=== PATIENT | male | born 1955 | race Caucasian/White ===

== ENCOUNTER 2017-10-05 10:57 | Observation (INO) | payer MEDICARE, OTHER ==
[~2017-10-05] VITALS: Ht 190.5 cm; Wt 104.5 kg
[2017-10-05 11:04] VITALS: BP 166/96; PULSE 81; RESP 16; TEMP 97.6; O2SAT 100
--- NOTE | 2017-10-05 11:08 | PD ---
HPI Chief Complaint: Cardiac Complaint Time Seen by Provider: 11:07 Travel History International Travel<30 days: No Contact w/Intl Traveler<30days: No Traveled to known affect area: No History of Present Illness HPI 62-year-old male with history of CAD, stent placement in April 2017, presents to the emergency department for evaluation of chest pressure. Patient states that over the last 3-4 days he has had worsening of indigestion any chest pressure more substernal in nature. This morning when he was walking his dog the pain became more severe in his left arm became numb and tingling. Over the last few days he has had associated shortness of breath with the symptoms. He contacted Dr. Thibodeaux's office and was advised to come to the emergency department. Patient took 1 aspirin this morning as he usually does. He is on both aspirin and Plavix. He denies any recent illnesses, fever, or chills. No sensation of lightheadedness or diaphoresis. He has no other symptoms to report at this time. PFSH Past Medical History Cardiovascular Problems: Yes Social History Tobacco Use: No Allergies-Medications (Allergen,Severity, Reaction): Coded Allergies: No Known Allergies (Unverified , 10/05/17) Reported Meds & Prescriptions Reported Meds & Active Scripts Active Reported Crestor (Rosuvastatin Calcium) 10 Mg Tab 10 Mg PO DAILY Plavix (Clopidogrel Bisulfate) 75 Mg Tab 75 Mg PO HS Levothyroxine (Levothyroxine Sodium) 50 Mcg Tab 50 Mcg PO DAILY Guaifenesin 400 Mg Tab 400 Mg PO Q4-6H PRN Tramadol (Tramadol HCl) 50 Mg Tab 50 Mg PO Q6H PRN Gabapentin 100 Mg Cap 100 Mg PO DAILY PRN Aspirin 325 Mg Tab 325 Mg PO HS Ambien (Zolpidem Tartrate) 10 Mg Tab 10 Mg PO HS PRN Protonix (Pantoprazole Sodium) 40 Mg Tab 40 Mg PO DAILY Nemo Allergy (Fexofenadine HCl) Unknown Strength Tab 1 Tab PO DAILY Flomax (Tamsulosin HCl) 0.4 Mg Cap 0.4 Mg PO HS Ibuprofen 800 Mg Tab 800 Mg PO TID PRN Flunisolide Nasal [place] (Flunisolide) 0.025 Mg/Act Naspr 2 [place] EACH NARE DAILY Review of Systems Except as stated in HPI: all other systems reviewed are Neg Physical Exam Narrative GENERAL: Well-nourished male patient, ambulatory and in no acute distress. SKIN: Focused skin assessment warm/dry. HEAD: Atraumatic. Normocephalic. EYES: Pupils equal and round. No scleral icterus. No injection or drainage. ENT: No nasal bleeding or discharge. Mucous membranes pink and moist. NECK: Trachea midline. No JVD. CARDIOVASCULAR: Regular rate and rhythm. No murmur appreciated. RESPIRATORY: No accessory muscle use. Clear to auscultation. Breath sounds equal bilaterally. GASTROINTESTINAL: Abdomen soft, non-tender, nondistended. Hepatic and splenic margins not palpable. MUSCULOSKELETAL: No obvious deformities. No clubbing. No cyanosis. No edema. NEUROLOGICAL: Awake and alert. No obvious cranial nerve deficits. Motor grossly within normal limits. Normal speech. PSYCHIATRIC: Appropriate mood and affect; insight and judgment normal. Data Data Last Documented VS Vital Signs Date Time Temp Pulse Resp B/P (MAP) Pulse Ox O2 Delivery O2 Flow Rate FiO2 10/05/17 12:09 122/80 (94) 10/05/17 11:25 18 99 Room Air 10/05/17 11:20 81 10/05/17 11:04 97.6 Orders Orders Electrocardiogram (10/05/17 11:14) Basic Metabolic Panel (Bmp) (10/05/17 11:14) Ckmb (Isoenzyme) Profile (10/05/17 11:14) Complete Blood Count With Diff (10/05/17 11:14) Magnesium (Mg) (10/05/17 11:14) Prothrombin Time / Inr (Pt) (10/05/17 11:14) Act Partial Throm Time (Ptt) (10/05/17 11:14) Troponin I (10/05/17 11:14) Ecg Monitoring (10/05/17 11:14) Bilateral Bp Monitoring (10/05/17 11:14) Iv Access Insert/Monitor (10/05/17 11:14) Oximetry (10/05/17 11:14) Oxygen Administration (10/05/17 11:14) Aspirin Chew (Aspirin Chew) (10/05/17 11:15) Sodium Chloride 0.9% Flush (Ns Flush) (10/05/17 11:15) Nitroglycerin Sl (Nitrostat Sl) (10/05/17 11:15) Sodium Chlorid 0.9% 500 Ml Inj (Ns 500 M (10/05/17 11:15) Chest, Pa & Lat (10/05/17 11:14) CKMB (10/05/17 11:35) CKMB% (10/05/17 11:35) Admit Order (Ed Use Only) (10/05/17 13:08) Labs Laboratory Tests Test 10/05/17 11:35 White Blood Count 4.9 TH/MM3 Red Blood Count 4.74 MIL/MM3 Hemoglobin 15.3 GM/DL Hematocrit 42.9 % Mean Corpuscular Volume 90.5 FL Mean Corpuscular Hemoglobin 32.2 PG Mean Corpuscular Hemoglobin Concent 35.5 % Red Cell Distribution Width 13.3 % Platelet Count 192 TH/MM3 Mean Platelet Volume 7.5 FL Neutrophils (%) (Auto) 43.0 % Lymphocytes (%) (Auto) 35.9 % Monocytes (%) (Auto) 15.9 % Eosinophils (%) (Auto) 4.1 % Basophils (%) (Auto) 1.1 % Neutrophils # (Auto) 2.1 TH/MM3 Lymphocytes # (Auto) 1.8 TH/MM3 Monocytes # (Auto) 0.8 TH/MM3 Eosinophils # (Auto) 0.2 TH/MM3 Basophils # (Auto) 0.1 TH/MM3 CBC Comment DIFF FINAL Differential Comment Prothrombin Time 11.1 SEC Prothromb Time International Ratio 1.1 RATIO Activated Partial Thromboplast Time 26.5 SEC Blood Urea Nitrogen 18 MG/DL Creatinine 1.29 MG/DL Random Glucose 91 MG/DL Calcium Level 9.1 MG/DL Magnesium Level 2.2 MG/DL Sodium Level 143 MEQ/L Potassium Level 4.1 MEQ/L Chloride Level 111 MEQ/L Carbon Dioxide Level 25.3 MEQ/L Anion Gap 7 MEQ/L Estimat Glomerular Filtration Rate 56 ML/MIN Total Creatine Kinase 135 U/L Creatine Kinase MB 1.2 NG/ML Troponin I LESS THAN 0.02 NG/ML MDM Medical Decision Making Medical Screen Exam Complete: Yes Emergency Medical Condition: Yes Medical Record Reviewed: Yes Differential Diagnosis Unstable angina versus NSTEMI versus STEMI versus pleuritic pain versus chest wall pain Narrative Course 62-year-old male presents to the emergency department for evaluation of a chest pressure/ pain with associated shortness of breath and left upper extremity tingling. Patient appears well. He is in no acute distress. His vital signs are stable. EKG was reviewed by my attending physician with no ST elevation or depression. Patient was given nitroglycerin. He reports marked improvement in his symptoms with this. Cardiac workup is initiated. Laboratory Tests Test 10/05/17 11:35 White Blood Count 4.9 TH/MM3 Red Blood Count 4.74 MIL/MM3 Hemoglobin 15.3 GM/DL Hematocrit 42.9 % Mean Corpuscular Volume 90.5 FL Mean Corpuscular Hemoglobin 32.2 PG Mean Corpuscular Hemoglobin Concent 35.5 % Red Cell Distribution Width 13.3 % Platelet Count 192 TH/MM3 Mean Platelet Volume 7.5 FL Neutrophils (%) (Auto) 43.0 % Lymphocytes (%) (Auto) 35.9 % Monocytes (%) (Auto) 15.9 % Eosinophils (%) (Auto) 4.1 % Basophils (%) (Auto) 1.1 % Neutrophils # (Auto) 2.1 TH/MM3 Lymphocytes # (Auto) 1.8 TH/MM3 Monocytes # (Auto) 0.8 TH/MM3 Eosinophils # (Auto) 0.2 TH/MM3 Basophils # (Auto) 0.1 TH/MM3 CBC Comment DIFF FINAL Differential Comment Prothrombin Time 11.1 SEC Prothromb Time International Ratio 1.1 RATIO Activated Partial Thromboplast Time 26.5 SEC Blood Urea Nitrogen 18 MG/DL Creatinine 1.29 MG/DL Random Glucose 91 MG/DL Calcium Level 9.1 MG/DL Magnesium Level 2.2 MG/DL Sodium Level 143 MEQ/L Potassium Level 4.1 MEQ/L Chloride Level 111 MEQ/L Carbon Dioxide Level 25.3 MEQ/L Anion Gap 7 MEQ/L Estimat Glomerular Filtration Rate 56 ML/MIN Total Creatine Kinase 135 U/L Creatine Kinase MB 1.2 NG/ML Troponin I LESS THAN 0.02 NG/ML Last Impressions Chest X-Ray 10/05/17 1114 Signed Impressions: Service Date/Time: September 11:39 - CONCLUSION: Normal examination for a patient of this age. Gregory Casper MD I discussed the patient with Dr. Thibodeaux who requests chest pain center observation with nothing by mouth after midnight. Plan is discussed with the patient. I've also discussed with my attending who is also assessed him and agrees with this plan of care. Diagnosis Primary Impression: Chest pain Qualified Codes: R07.9 - Chest pain, unspecified Admitting Information Admitting Physician Requests: Observation Condition: Stable Lorena Levine Oct 05, 2017 11:08
[2017-10-05] MEDS ORDERED: ASPIRIN 81 MG CHEW TAB PO ONE (11:15)
[2017-10-05] MEDS ORDERED: SODIUM CHLORID 0.9% 500 ML INJ 500 ML IV ONE (11:15)
[2017-10-05] MEDS ORDERED: SODIUM CHLORIDE 0.9% FLUSH 10 ML FLUSH IVF PRN (11:15)
[2017-10-05 11:20] VITALS: BP 162/103; PULSE 81; RESP 18; O2SAT 99
[2017-10-05] MEDS: NITROGLYCERIN 0.4 MG SL 25 TABS/BTL SL SCH ×4 (11:20→13:09)
[2017-10-05 11:25] VITALS: RESP 18; O2SAT 99
--- NOTE | 2017-10-05 11:43 | PD ---
Physical Exam Narrative I, Dr. Mulligan, have reviewed the advance practice practitioner's documentation and am in agreement, met with the patient face to face, made the diagnosis, and the medical decision making was done by me. *My assessment and Findings: Patient is a 62 year old male who comes in complaining of chest pain. He says for the past few days he was having what he thought was indigestion. He says he has had discomfort in his chest on and of, worse when he exerts himself. He says he was walking his dog today when he felt pressure in his chest radiating down his left arm. 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 He had a stent placed in April and says this feels different then that time, when he felt more of a severe pressure sensation to his chest. Exam shows lungs CTA, heart is RRR. Data Data Last Documented VS Vital Signs Date Time Temp Pulse Resp B/P (MAP) Pulse Ox O2 Delivery O2 Flow Rate FiO2 10/05/17 12:09 122/80 (94) 10/05/17 11:25 18 99 Room Air 10/05/17 11:20 81 10/05/17 11:04 97.6 Orders Orders Electrocardiogram (10/05/17 11:14) Basic Metabolic Panel (Bmp) (10/05/17 11:14) Ckmb (Isoenzyme) Profile (10/05/17 11:14) Complete Blood Count With Diff (10/05/17 11:14) Magnesium (Mg) (10/05/17 11:14) Prothrombin Time / Inr (Pt) (10/05/17 11:14) Act Partial Throm Time (Ptt) (10/05/17 11:14) Troponin I (10/05/17 11:14) Ecg Monitoring (10/05/17 11:14) Bilateral Bp Monitoring (10/05/17 11:14) Iv Access Insert/Monitor (10/05/17 11:14) Oximetry (10/05/17 11:14) Oxygen Administration (10/05/17 11:14) Aspirin Chew (Aspirin Chew) (10/05/17 11:15) Sodium Chloride 0.9% Flush (Ns Flush) (10/05/17 11:15) Nitroglycerin Sl (Nitrostat Sl) (10/05/17 11:15) Sodium Chlorid 0.9% 500 Ml Inj (Ns 500 M (10/05/17 11:15) Chest, Pa & Lat (10/05/17 11:14) CKMB (10/05/17 11:35) CKMB% (10/05/17 11:35) Admit Order (Ed Use Only) (10/05/17 13:08) Labs Laboratory Tests Test 10/05/17 11:35 White Blood Count 4.9 TH/MM3 Red Blood Count 4.74 MIL/MM3 Hemoglobin 15.3 GM/DL Hematocrit 42.9 % Mean Corpuscular Volume 90.5 FL Mean Corpuscular Hemoglobin 32.2 PG Mean Corpuscular Hemoglobin Concent 35.5 % Red Cell Distribution Width 13.3 % Platelet Count 192 TH/MM3 Mean Platelet Volume 7.5 FL Neutrophils (%) (Auto) 43.0 % Lymphocytes (%) (Auto) 35.9 % Monocytes (%) (Auto) 15.9 % Eosinophils (%) (Auto) 4.1 % Basophils (%) (Auto) 1.1 % Neutrophils # (Auto) 2.1 TH/MM3 Lymphocytes # (Auto) 1.8 TH/MM3 Monocytes # (Auto) 0.8 TH/MM3 Eosinophils # (Auto) 0.2 TH/MM3 Basophils # (Auto) 0.1 TH/MM3 CBC Comment DIFF FINAL Differential Comment Prothrombin Time 11.1 SEC Prothromb Time International Ratio 1.1 RATIO Activated Partial Thromboplast Time 26.5 SEC Blood Urea Nitrogen 18 MG/DL Creatinine 1.29 MG/DL Random Glucose 91 MG/DL Calcium Level 9.1 MG/DL Magnesium Level 2.2 MG/DL Sodium Level 143 MEQ/L Potassium Level 4.1 MEQ/L Chloride Level 111 MEQ/L Carbon Dioxide Level 25.3 MEQ/L Anion Gap 7 MEQ/L Estimat Glomerular Filtration Rate 56 ML/MIN Total Creatine Kinase 135 U/L Creatine Kinase MB 1.2 NG/ML Troponin I LESS THAN 0.02 NG/ML MDM Supervised Visit with VICKIE: Yes Narrative Course First Troponin is negative. Patient reports relief of his symptoms with nitro. He will be placed in the chest pain center for further management. Diagnosis Primary Impression: Chest pain Qualified Codes: R07.9 - Chest pain, unspecified Admitting Information Admitting Physician Requests: Heather Sauceda MD Oct 05, 2017 11:42
--- NOTE | 2017-10-05 11:50 | RADRPT ---
EXAM DATE/TIME: 10/05/2017 11:39 [facility] COMPARISON: No previous studies available for comparison. INDICATIONS : Chest pain MEDICAL HISTORY : Cardiovascular disease. SURGICAL HISTORY : Coronary artery stent. ENCOUNTER: Initial ACUITY: 4 - 6 days PAIN SCORE: 2/10 LOCATION: chest FINDINGS: PA and lateral views of the chest demonstrate the lungs to be symmetrically aerated without evidence of mass, infiltrate or effusion. The cardiomediastinal contours are unremarkable. Osseous structure s are intact. CONCLUSION: Normal examination for a patient of this age. Gregory Casper MD on October 05, 2017 at 11:49 Board Certified Radiologist. This report was verified electronically.
[2017-10-05 12:09] VITALS: BP 122/80
[2017-10-05 12:14] LABS: AUTOMATED NEUTROPHIL # 2.1 TH/MM3 (1.8-7.7); BASOPHIL # 0.1 TH/MM3 (0-0.2); BASOPHIL % 1.1 % (0.0-2.0); EOSINOPHIL # 0.2 TH/MM3 (0-0.4); EOSINOPHIL % 4.1 % (0.0-4.0); HEMATOCRIT 42.9 % (39.0-51.0); HEMOGLOBIN 15.3 GM/DL (13.0-17.0); LYMPH % 35.9 % (9.0-44.0); LYMPHOCYTE # 1.8 TH/MM3 (1.0-4.8); MEAN CELL VOLUME 90.5 FL (80.0-100.0); MEAN CORPUSCULAR HEMOGLOBIN 32.2 PG (27.0-34.0); MEAN CORPUSCULAR HGB CONC 35.5 % (32.0-36.0); MEAN PLATELET VOLUME 7.5 FL (7.0-11.0); MONO % 15.9 % (0.0-8.0); MONOCYTE # 0.8 TH/MM3 (0-0.9); PLATELET COUNT 192 TH/MM3 (150-450); RED BLOOD COUNT 4.74 MIL/MM3 (4.50-5.90); RED CELL DISTRIBUTION WIDTH 13.3 % (11.6-17.2); WHITE BLOOD COUNT 4.9 TH/MM3 (4.0-11.0)
[2017-10-05] MEDS ORDERED: FLUN25I EACH NARE (12:32)
[2017-10-05] MEDS ORDERED: PROT40TA PO (12:32)
[2017-10-05] MEDS ORDERED: ASPI-183 PO (12:32)
[2017-10-05] MEDS ORDERED: AMBI10TA PO (12:32)
[2017-10-05] MEDS ORDERED: IBUP1TAB7 PO (12:32)
[2017-10-05] MEDS ORDERED: TAMS5CAP PO (12:32)
[2017-10-05] MEDS ORDERED: FEXO15TA PO (12:32)
[2017-10-05 12:35] LABS: TROPONIN I LESS THAN 0.02 NG/ML (0.02-0.05)
[2017-10-05] MEDS ORDERED: GUAI400T32 PO (12:42)
[2017-10-05] MEDS ORDERED: PLAV75TA29 PO (12:42)
[2017-10-05] MEDS ORDERED: LEVO50TA4 PO (12:42)
[2017-10-05] MEDS ORDERED: GABA100C4 PO (12:42)
[2017-10-05] MEDS ORDERED: ROSU10 PO (12:42)
[2017-10-05] MEDS ORDERED: TRAM50TA PO (12:42)
[2017-10-05 12:45] LABS: INTERNATIONAL NORMALIZED RATIO 1.1 RATIO; PROTHROMBIN TIME - PATIENT 11.1 SEC (9.8-11.6)
[2017-10-05 12:47] LABS: BICARBONATE 25.3 MEQ/L (21.0-32.0); BLOOD UREA NITROGEN 18 MG/DL (7-18); CALCIUM 9.1 MG/DL (8.5-10.1); CHLORIDE 111 MEQ/L (98-107); CREATININE 1.29 MG/DL (0.60-1.30); GLOMERULAR FILTRATION RATE 56 ML/MIN (>89); GLUCOSE,RANDOM 91 MG/DL (74-106); MAGNESIUM 2.2 MG/DL (1.5-2.5); SODIUM (NA) 143 MEQ/L (136-145)
[2017-10-05 13:10] VITALS: BP_SYST 127; BP_SYST 147; BP_DIAS 84; BP_DIAS 87; PULSE 60; RESP 16; TEMP 98; O2SAT 100
[2017-10-05] MEDS ORDERED: NITROGLYCERIN 0.4 MG SL 25 TABS/BTL SL PRN (13:15)
[2017-10-05] MEDS ORDERED: ACETAMINOPHEN 500 MG CPLT PO PRN (13:15)
[2017-10-05] MEDS ORDERED: ONDANSETRON HCL 4 MG/2 ML VIAL IV PUSH PRN (13:15)
--- NOTE | 2017-10-05 14:22 | HHI.HP ---
HPI Primary Care Physician Marvin Madrid MD Chief Complaint Chest pain History of Present Illness 62-year-old male with known coronary artery disease, hypertension, and GERD presents to emergency room for further evaluation of chest pain. Onset 3 days ago. Location substernal. Described as tightness, feels like indigestion. Severity [id number]. Occasional radiation to left wrist. Left arm. Duration has waxed and waned in intensity, stating he has had the discomfort more than not having chest pain. No associated symptoms of nausea, vomiting, diaphoresis, or dyspnea. No known precipitating factors. In fact, yesterday cycled, basketball, works out at the gym, and to his routine daily walk without chest pain becoming worse. Relieving factors laying flat or being still. No recent illness, no recent trauma or injury. Denies pain. Similar prior to requiring cardiac stent placed in April 2017. Review of Systems General: No fatigue,weakness, fever, chills, or recent illness change in appetite. Has been adjusted help. HEENT: No MCKNIGHT, no vision changes, no nasal congestion or drainage, no dysphasia CV: As stated above. Continues to have chest tightness. No palpitations, intermittent leg pain, dizziness RESP: No SOB, cough, wheeze, or recent URI. GI: History of GERD and Shaw's esophagus. No nausea, vomiting, bowel changes , diarrhea, constipation, pain, distention, melena, blood in the stool. : No dysuria, urgency, frequency EXT: No lower leg edema, no paraesthesias MS: No discomfort or change in ROM NEURO: No difficulty with balance, LOC, motor/sensory deficits PSYCH: No anxiety, depression SKIN: No rashes, no concerning lesions Past Family Social History Allergies: Coded Allergies: No Known Allergies (Unverified , 10/05/17) Past Medical History Coronary artery disease, GERD, Shaw's esophagus, BPH, hyperlipidemia Past Surgical History Cardiac stent April 2017, orthopedic surgeries Reported Medications Reported Meds & Active Scripts Active Reported Crestor (Rosuvastatin Calcium) 10 Mg Tab 10 Mg PO DAILY Plavix (Clopidogrel Bisulfate) 75 Mg Tab 75 Mg PO HS Levothyroxine (Levothyroxine Sodium) 50 Mcg Tab 50 Mcg PO DAILY Guaifenesin 400 Mg Tab 400 Mg PO Q4-6H PRN Tramadol (Tramadol HCl) 50 Mg Tab 50 Mg PO Q6H PRN Gabapentin 100 Mg Cap 100 Mg PO DAILY PRN Aspirin 325 Mg Tab 325 Mg PO HS Ambien (Zolpidem Tartrate) 10 Mg Tab 10 Mg PO HS PRN Protonix (Pantoprazole Sodium) 40 Mg Tab 40 Mg PO DAILY Nemo Allergy (Fexofenadine HCl) Unknown Strength Tab 1 Tab PO DAILY Flomax (Tamsulosin HCl) 0.4 Mg Cap 0.4 Mg PO HS Ibuprofen 800 Mg Tab 800 Mg PO TID PRN Flunisolide Nasal [place] (Flunisolide) 0.025 Mg/Act Naspr 2 [place] EACH NARE DAILY Active Ordered Medications Current Medications Medications (Trade) Dose Ordered Sig/Jessica Route Start Time Stop Time Status Last Admin (NS Flush) 2 ml UNSCH PRN IVF 10/05/17 11:15 (NS Flush) 2 ml BID IV FLUSH 10/05/17 21:00 (Tylenol) 500 mg Q4H PRN PO 10/05/17 13:15 (Zofran Inj) 4 mg Q6H PRN IV PUSH 10/05/17 13:15 (Nitrostat Sl) 0.4 mg Q5M PRN SL 10/05/17 13:15 (Aspirin) 325 mg DAILY PO 10/06/17 09:00 Social History Known coronary artery disease, appropriately on statin therapy. No known hypertension or diabetes. Lifelong nonsmoker. Rare alcohol use. . Retired. Endorses active lifestyle. Past Cardiac testing Cardiac catheterization in April 2017 (Dr. Rivero) reports x1 cardiac stent placed to LAD. Roof Foreman is now Dr. Thibodeaux. Physical Exam Vital Signs Vital Signs Date Time Temp Pulse Resp B/P (MAP) Pulse Ox O2 Delivery O2 Flow Rate FiO2 10/05/17 13:10 98.0 60 16 147/87 (107) 100 Room Air 127/84 (98) 10/05/17 12:09 122/80 (94) 10/05/17 11:25 18 99 Room Air 10/05/17 11:20 81 18 162/103 (122) 99 Room Air 10/05/17 11:20 100 Room Air 10/05/17 11:20 76 18 99 Room Air 10/05/17 11:04 97.6 81 16 166/96 (119) 100 Physical Exam GENERAL: Alert WN, WD, NAD, pleasant, male HEAD: NC, AT EYES: Sclera clear, conjunctiva without injection, pupils equal and round ENT: Mucous membranes pink and moist CV: RRR, without murmur, rub, gallop, no JVD, S1-S2 no S3-S4. RESP: Clear lungs throughout bilateral, no crackles, wheeze, rhonchi, symmetrical chest rise, nonlabored, able to speak in full sentences ABD: Soft, NT, ND, no masses, positive bowel tones EXT: Pulses +24, no dependent edema MS: Normal tone 4 extremities, nontender, no obvious deformities, full range of motion NEURO: CN II through CN XII grossly intact, motor strength 5/5, gait WNL PSYCH: A+O 3, pleasant affect, appropriate speech, mood, insight and judgment SKIN: Normal turgor, normal texture, no lesions, no rashes, brisk cap refill, even hair distribution Laboratory Laboratory Tests Test 10/05/17 11:35 White Blood Count 4.9 Red Blood Count 4.74 Hemoglobin 15.3 Hematocrit 42.9 Mean Corpuscular Volume 90.5 Mean Corpuscular Hemoglobin 32.2 Mean Corpuscular Hemoglobin Concent 35.5 Red Cell Distribution Width 13.3 Platelet Count 192 Mean Platelet Volume 7.5 Neutrophils (%) (Auto) 43.0 Lymphocytes (%) (Auto) 35.9 Monocytes (%) (Auto) 15.9 Eosinophils (%) (Auto) 4.1 Basophils (%) (Auto) 1.1 Neutrophils # (Auto) 2.1 Lymphocytes # (Auto) 1.8 Monocytes # (Auto) 0.8 Eosinophils # (Auto) 0.2 Basophils # (Auto) 0.1 CBC Comment DIFF FINAL Differential Comment Prothrombin Time 11.1 Prothromb Time International Ratio 1.1 Activated Partial Thromboplast Time 26.5 Blood Urea Nitrogen 18 Creatinine 1.29 Random Glucose 91 Calcium Level 9.1 Magnesium Level 2.2 Sodium Level 143 Potassium Level 4.1 Chloride Level 111 Carbon Dioxide Level 25.3 Anion Gap 7 Estimat Glomerular Filtration Rate 56 Total Creatine Kinase 135 Creatine Kinase MB 1.2 Troponin I LESS THAN 0.02 Result Diagram: 10/05/17 1135 10/05/17 1135 Imaging Last 48 hours Impressions Chest X-Ray 10/05/17 1114 Signed Impressions: Service Date/Time: Thursday, October 05, 2017 11:39 - CONCLUSION: Normal examination for a patient of this age. Gregory Casper MD Course EKG Normal sinus rhythm, no ST-T segment changes Caprini VTE Risk Assessment Caprini VTE Risk Assessment: Mod/High Risk (score >= 2) Caprini Risk Assessment Model Point Value = 1 Point Value = 2 Point Value = 3 Point Value = 5 Age 41-60 Minor surgery BMI > 25 kg/m2 Swollen legs Varicose veins or History of unexplained or recurrent spontaneous Oral contraceptives or hormone replacement Sepsis (< 1 month) Serious lung disease, including pneumonia (< 1 month) Abnormal pulmonary function Acute myocardial infarction Congestive heart failure (< 1 month) History of inflammatory bowel disease Medical patient at bed rest Age 61-74 Arthroscopic surgery Major open surgery (> 45 min) Laparoscopic surgery (> 45 min) Malignancy Confined to bed (> 72 hours) Immobilizing plaster cast Central venous access Age >= 75 History of VTE Family history of VTE Factor V Leiden Prothrombin [id number] Lupus anticoagulant Anticardiolipin antibodies Elevated serum homocysteine Heparin-induced thrombocytopenia Other congenital or acquired thrombophilia Stroke (< 1 month) Elective arthroplasty Hip, pelvis, or leg fracture Acute spinal cord injury (< 1 month) Prophylaxis Regimen Total Risk Factor Score Risk Level Prophylaxis Regimen 0-1 Low Early ambulation 2 Moderate Order ONE of the following: *Sequential Compression Device (SCD) *Heparin 5000 units SQ BID 3-4 Higher Order ONE of the following medications: *Heparin 5000 units SQ TID *Enoxaparin/Lovenox 40 mg SQ daily (WT < 150 kg, CrCl > 30 mL/min) *Enoxaparin/Lovenox 30 mg SQ daily (WT < 150 kg, CrCl > 10-29 mL/min) *Enoxaparin/Lovenox 30 mg SQ BID (WT < 150 kg, CrCl > 30 mL/min) AND/OR *Sequential Compression Device (SCD) 5 or more Highest Order ONE of the following medications: *Heparin 5000 units SQ TID (Preferred with Epidurals) *Enoxaparin/Lovenox 40 mg SQ daily (WT < 150 kg, CrCl > 30 mL/min) *Enoxaparin/Lovenox 30 mg SQ daily (WT < 150 kg, CrCl > 10-29 mL/min) *Enoxaparin/Lovenox 30 mg SQ BID (WT < 150 kg, CrCl > 30 mL/min) AND *Sequential Compression Device (SCD) Assessment and Plan Assessment and Plan #1 Atypical chest pain-admitted chest pain center. Seen and evaluated by Dr. Sudhakar Harvey. Proceed with exercise stress test has been ruled out with 1 set of EKGs and cardiac enzymes. If unremarkable, plans would be to discharge home with follow-up with his primary care provider and explosives worker. Patient and agreeable to plan of care. #2 History of GERD-cannot conclude discomfort is or is not related to GI track therefore discussed importance of following up with his PCP and his GI M.D. Agreeable to GI cocktail prior to discharge. Adelita Nichols Oct 05, 2017 14:22
[2017-10-05 16:03] LABS: TROPONIN I LESS THAN 0.02 NG/ML (0.02-0.05)
[2017-10-05] MEDS ORDERED: LIDOCAINE VISCOUS 2% SOLN 15 ML UDC SWISH-SWAL ONE (16:30)
[2017-10-05] MEDS ORDERED: ALUMINUM/MAGNESIUM/SIMETH 30 ML CUP PO ONE (16:30)
--- NOTE | 2017-10-05 16:58 | HHI.DCPOC ---
Discharge Care Plan Diagnosis: (1) Atypical chest pain (2) GERD (gastroesophageal reflux disease) (3) Hx of coronary artery disease Goals to Promote Your Health * To prevent worsening of your condition and complications * To maintain your health at the optimal level Directions to Meet Your Goals Take your medications as prescribed Follow your dietary instruction Follow activity as directed Keep your appointments as scheduled Take your immunizations and boosters as scheduled If your symptoms worsen call your PCP, if no PCP go to Urgent Care Center or Emergency Room Smoking is Dangerous to Your Health. Avoid second hand smoke Call the 24-hour hour crisis hotline for domestic abuse at Adelita Nichols Oct 05, 2017 16:58
[2017-10-05 17:10] VITALS: BP 155/96; PULSE 68; RESP 18; TEMP 97.9; O2SAT 97
[2017-10-05] MEDS ORDERED: SODIUM CHLORIDE 0.9% FLUSH 10 ML FLUSH IV FLUSH SCH (21:00)
--- NOTE | 2017-10-06 08:43 | EKG ---
Date Performed: 10/05/2017 Time Performed: 14:35:16 PTAGE: 62 years EKG: Sinus rhythm MODERATE INTRAVENTRICULAR CONDUCTION DELAY BORDERLINE ECG PREVIOUS TRACING : 10/05/2017 11.25 Since previous tracing, no significant change noted DOCTOR: Sudhakar Harvey Interpretating Date/Time 10/06/2017 08:42:14
--- NOTE | 2017-10-06 08:44 | EKG ---
Date Performed: 10/05/2017 Time Performed: 11:25:36 PTAGE: 62 years EKG: Sinus rhythm NORMAL ECG NO PREVIOUS TRACING DOCTOR: Sudhakar Harvey Interpretating Date/Time 10/06/2017 08:43:07
--- NOTE | 2017-10-06 08:54 | TR ---
Date Performed: 10/05/2017 Time Performed: 15:25:06 DOCTOR: Sudhakar Harvey DRUG LIST: CLINICAL HISTORY: CHEST PAIN REASON FOR TEST: Chest pain REASON FOR ENDING: OBSERVATION: CONCLUSION: Brennan protocol completed. Stopped sec to reaching target heart rate and leg fatigue. Maximum HY=493 Target HR Achieved=85.0% Maximum FX=440/82 Total Exercise Time=5:13. No reprod chest pain. Ectopy freq PVC during recovery. Good exercise tolerance. Normal bp response. Recovery quick an d unremarkable. COMMENTS: Patient exercised using the Brennan protocol. No electrocardiographic changes were seen to suggest ischemia. Hemodynamic response to exercise was normal. No significant arrhythmia was prese nt.
[2017-10-06] MEDS ORDERED: ASPIRIN 325 MG TAB PO SCH (09:00)
== END 2017-10-05 17:58 | disposition home or self-care (01) ==
LOC: NEPE 10:57 → NEDA 13:09 → NEPFCDU 15:48
PROVIDERS: ADMIT Internal Medicine Cardiovascular Disease; ATTEND Internal Medicine Cardiovascular Disease
DX: R07.89 Other chest pain (principal); R06.02 Shortness of breath; R20.0 Anesthesia of skin; R20.2 Paresthesia of skin; K21.9 Gastro-esophageal reflux disease without esophagitis; I25.10 Atherosclerotic heart disease of native coronary artery without angina pectoris; I10 Essential (primary) hypertension; E78.5 Hyperlipidemia, unspecified; N40.0 Benign prostatic hyperplasia without lower urinary tract symptoms; Z95.5 Presence of coronary angioplasty implant and graft; Z79.899 Other long term (current) drug therapy; Z79.82 Long term (current) use of aspirin; Z79.02 Long term (current) use of antithrombotics/antiplatelets
CPT/HCPCS: 71046; 80048; 82550; 82552; 83735; 84484; 85025; 85610; 85730; 93005; 93017; 96360; 99285; G0378; J7040

== ENCOUNTER 2017-11-13 10:16 | Day surgery (SDC) | payer MEDICARE, OTHER ==
[~2017-11-13] VITALS: Ht 190.5 cm; Wt 104.8 kg
[~2017-11-13 10:16] MED LIST: AMBI10TA PO; ASPI-183 PO; FEXO15TA PO; FLUN25I EACH NARE; GABA100C4 PO; GUAI400T32 PO; IBUP1TAB7 PO; LEVO50TA4 PO; PLAV75TA29 PO; PROT40TA PO; ROSU10 PO; TAMS5CAP PO; TRAM50TA PO
[2017-11-13] MEDS ORDERED: IOHEXOL 350 MG/ML 100 ML BTL (for Cath Lab) OTHER ONE (10:17)
[2017-11-13 10:35] VITALS: BP 151/95; PULSE 72; RESP 17; TEMP 97.8; O2SAT 100
[2017-11-13 11:17] LABS: AUTOMATED NEUTROPHIL # 1.7 TH/MM3 (1.8-7.7); BASOPHIL % 1.2 % (0.0-2.0); EOSINOPHIL # 0.2 TH/MM3 (0-0.4); EOSINOPHIL % 4.5 % (0.0-4.0); HEMATOCRIT 43.3 % (39.0-51.0); LYMPHOCYTE # 1.3 TH/MM3 (1.0-4.8); MEAN CELL VOLUME 90.9 FL (80.0-100.0); MEAN CORPUSCULAR HEMOGLOBIN 31.4 PG (27.0-34.0); MEAN CORPUSCULAR HGB CONC 34.6 % (32.0-36.0); MEAN PLATELET VOLUME 7.5 FL (7.0-11.0); MONO % 15.7 % (0.0-8.0); MONOCYTE # 0.6 TH/MM3 (0-0.9); NEUT % 44.6 % (16.0-70.0); PLATELET COUNT 200 TH/MM3 (150-450); RED BLOOD COUNT 4.76 MIL/MM3 (4.50-5.90); RED CELL DISTRIBUTION WIDTH 13.3 % (11.6-17.2); WHITE BLOOD COUNT 3.8 TH/MM3 (4.0-11.0)
[2017-11-13 11:26] LABS: INTERNATIONAL NORMALIZED RATIO 1.1 RATIO; PROTHROMBIN TIME - PATIENT 11.3 SEC (9.8-11.6)
[2017-11-13 11:36] LABS: BICARBONATE 25.9 MEQ/L (21.0-32.0); CALCIUM 8.9 MG/DL (8.5-10.1); CREATININE 1.04 MG/DL (0.60-1.30)
[2017-11-13] MEDS ORDERED: NS 1000P @30 MLS/HR (KVO) IV SCH (12:00)
[2017-11-13] MEDS ORDERED: LIDOCAINE HCL 1% PF 30 ML VIAL ONE (12:32)
[2017-11-13] MEDS ORDERED: MIDAZOLAM HCL 2 MG/2 ML VIAL ONE ×2 (12:33→13:03)
[2017-11-13] MEDS ORDERED: HEPARIN-NS/PF FLUSH BAG 2,000 ML IV FLUSH ONE (12:33)
--- NOTE | 2017-11-13 13:34 | CATHPROC ---
[employer] HIS Report Study Information Study Number Admission Scheduled Start Study Start [id number] Nov 13 2017 10:16AM 11/13/2017 Nov 13 2017 12:21PM [place] Service Cardiac Catheterization Admit Source Facility Department Other [facility] - [employer] Physician and Clinical Staff Initial MD Thibodeaux, Corinna Service Liaison Representative Odette Warren,JANNY Recorder Sunni Cohen,RT(R) (BS) Scrub Lynne EstradaRT(R) Procedures Performed Procedure Location (Site) Vessel Name Angiogram LV LV Ventricle Coronary Angiograms LCA Left Coronary Coronary Angiograms RCA Right Coronary L Heart Cath Equipment Time Vice President Marketing & Development Description Size Mfg Part Number Used/Scraped TRANSDUCER, TRUWAVE [id number] 12:35 [employer]orial [employer]cience * Used W/STOCKCOCK *[id number] INTRODUCER SET, 12:35 [employer] FR 5 [id number] *[id number] Used MICROPUNCTURE STIFF 538-476 *[id number] 538-420 *[id number] 538-422 *[id number] 538-453S *[id number] 12:35 [employer] PACK, CCL CUSTOM * Used *[id number] 12:35 [employer]urn PACER PEN, SKIN DUAL W/ RULER * Used *[id number] 12:35 [employer] WIRE, 3MMJ .035 180CM 180CM Used *[id number] PROBE COVER, STERILE [id number] 12:35 [employer] MEDICAL * Used ULTRASOUND W/ GEL *[id number] 12:35 NAMIC MANIFOLD, 4 PORT * Used *[id number] 12:35 [employer]ED OMNIPAQUE, 350 MG, 150ML 150ML [id number] Used [id number] 12:35 [employer]UCAS [employer] BLANKET,WARM AIR CCL * Used *[id number] 12:35 [employer] MEDICAL SHEATH, FR4 TERUMO (10CM) FR 4 Used *[id number] History: Current Medications Medication Dosage/Unit Route Frequency Last Date/Time Taken Statins (any) ASA PLAVIX History: Allergies Allergy Reaction No Known Allergies History: Risk Factors Family History of Hypertension Dyslipidemia Previous [place] Previous Heart Failure Premature CAD Yes Yes Yes No No Prior Valve Prior PCI Prior PCIDate Prior CABG Surgery No Yes 04/30/2017 No Cerebrovascular Peripheral Artery Chronic Lung On Dialysis Diabetes Disease Disease Disease No No No No No History: Stress Tests Stress or Imaging Studies Performed No History: Other Current Smoker No Labs Hgb (g/dl) Hct (%) WBC (l/cumm) Platelets (thousands) 11.60-17.00 35.00-51.00 4.00-11.00 150.00-450.00 15.0 43.3 3.8 200 Glucose (mg/dl) BUN (mg/dl) Creatinine (mg/dl) BUN:Creatinine (1:x) 74.00-106.00 7.00-18.00 0.50-1.30 10.00-20.00 96 16 1.0 16 Na (meq/l) K (meq/l) 136.00-145.00 3.50-5.10 145 3.9 INR (PTT:PT) 0.90-1.10 1.1 CPK-MB (ng/ML) 0.50-3.60 Not Drawn Medication Medication Total Dose (Bolus/Oral) Medication Total Dosage/Unit 1% XYLOCAINE 20 mL FENTANYL 75 mcg VERSED 3 mg Medications (Bolus/Oral) Medication Time Given Dosage/Unit Administered By Reason VERSED 11/13/2017 12:51:09 PM 2 mg Odette Warren 2 mg VERSED given in lab by Odette Warren RN in Left Antecubital via Peripheral IV. FENTANYL 11/13/2017 12:52:20 PM 50 mcg Odette Warren 50 mcg FENTANYL given in lab by Odette Warren, JANNY in Left Antecubital via Peripheral IV. 1% XYLOCAINE 11/13/2017 12:53:52 PM 20 mL Corinna Thibodeaux 20 mL 1% XYLOCAINE given in lab by Corinna Thibodeaux in Right Groin via Subcutaneous. VERSED 11/13/2017 1:04:32 PM 1 mg Odette Warren 1 mg VERSED given in lab by Odette Warren RN in Left Antecubital via Peripheral IV. FENTANYL 11/13/2017 1:05:41 PM 25 mcg Odette Warren 25 mcg FENTANYL given in lab by Odette Warren, JANNY in Left Antecubital via Peripheral IV. Medication (Drip) Medication Time Given Dosage/Unit Concentration/Unit Diluent (ml) Solution IV Solutions 11/13/2017 12:22:20 PM 0 mL (IV) 500 NaCl .9 IV Solutions given in lab by Odette Warren, RN in Left Antecubital via Peripheral IV. Pump/Drip Steve w = 30 ml/hr using NaCl .9. Initial Case Assessment Cardiovascular HR Rhythm NIBP Chest Pain 60 reg 161/87 0 Edema Present Skin color Skin None Normal Warm Dry Circulatory - Right Pulses Dorsalis Pedis Femoral 2 2 Scale (0,1,2,3,4,d) Circulatory - Left Pulses Dorsalis Pedis Femoral 2 2 Scale (0,1,2,3,4,d) Circulatory - Lower Extremities Color Lower Right Color Lower Left Normal Normal Neurological State Oriented to time-place- Alert Moves all extremities person Respiration - General Respiration Rate SpO2 (%) (B/min) 14 100 Chronological Log Time Study Chronological Log 12:20:57 Patient arrived via Bed. 12:20:58 Patient Name, D.O.B, / Armband Verified By R.N. 12:21:00 Consent signed by the physician and the patient and verified by the [employer] staff. 12:22:09 Pre-op and post- op instructions given; patient acknowledges understanding of instruction s. 12:22:10 Verbal Stimulation=2 Physical Stimulation=2 Airway=2 Respiration=2 TOTAL=8. (0=absent, 1= limited, 2=present) 12:22:12 Presedation assessment performed by Coffee Maker Servicer RN. 12:22:16 Patient has been NPO for More than 6Hrs. 12:22:17 Skin Breakdown none per pt 12:22:18 Patient Warmer Placed on the Table. 12:22:19 Rebecca Prominences Protected 12:22:20 A # 20 IV was noted in the Antecubital (left). Grade = 0 IV Solutions given in lab by Odette Warren, RN in Left Antecubital via Peripheral IV. Pump/Dr ip Flow = 30 ml/hr using 12:22:20 NaCl .9. 12:22:21 History and physical on the chart or being dictated. Assessment: Initial Case, HR=60 BPM, Rhythm=reg, XBBR=604/87 mmhg, Chest Pain=0, Edema=None, Co makenna=Normal, Skin = Warm, Dry Right Pulses: Luis Ped=2, Femoral=2 Left Pulses: Luis Ped=2, Femoral=2 12:22:22 Lower Right Extremities: Color=Normal Lower Left Extremities: Color=Normal Neurological: State=Alert, Ox3, WHEELER Respiration: Resp=14 B/min, DfU7=938 % Vitals capture started with the following parameters, Patient=Adult, Interval=5 min, Initial Pr zixtfc=449 mmHg, 12:24:22 Deflation Rate=5 mmHg, Cuff placed on Unknown 12:25:04 HR=67 bpm, VPAB=752/87 mmhg, SpO2=99.0 %, Resp=28 B/min, Pain=0, Dennise=10, Velazquez=2 12:28:30 Bilateral groins prepped with 2% chlorhexidine, and draped after a 3 minute waiting time. 12:30:05 HR=71 bpm, ITKW=652/96 mmhg, SpO2=94.0 %, Resp=19 B/min, Pain=0, Dennise=10, Velazquez=2 12:32:02 Reference ECG taken 12:32:53 MD paged 12:35:51 HR=59 bpm, JFTS=180/90 mmhg, MaQ5=657.0 %, Resp=11 B/min, Pain=0, Dennise=10, Velazquez=2 12:40:05 HR=55 bpm, NXSB=975/93 mmhg, SpO2=99.0 %, Resp=15 B/min, Pain=0, Dennise=10, Velazquez=2 12:40:11 Pressure channel 1 zeroed. 12:45:04 HR=54 bpm, ERZK=287/92 mmhg, SpO2=99.0 %, Resp=12 B/min, Pain=0, Dennise=10, Velazquez=2 12:49:40 MD arrived 12:50:03 HR=57 bpm, XRUU=798/94 mmhg, CbF3=544.0 %, Resp=12 B/min, Pain=0, Dennise=10, Velazquez=2 12:51:09 2 mg VERSED given in lab by Odette Warren, JANNY in Left Antecubital via Peripheral IV. 12:52:20 50 mcg FENTANYL given in lab by Odette Warren, RN in Left Antecubital via Peripheral IV. Time Out. Correct patient, correct procedure, correct physician, power injector loaded with con trast with surgical team 12:52:30 present. Time Out Concurred by MD and individual staff in procedure. 12:52:41 Case Start 12:53:52 20 mL 1% XYLOCAINE given in lab by Corinna Thibodeaux in Right Groin via Subcutaneous. 12:55:04 HR=59 bpm, TMEA=045/100 mmhg, AoZ7=145.0 %, Resp=15 B/min, Pain=0, Dennise=10, Velazquez=2 12:55:50 Access site was Right Femoral Artery using ultrasound A INTRODUCER SET, MICROPUNCTURE STIFF FR 5 was advanced into the Fem Art (right) using the Cutd own 12:56:27 technique. A SHEATH, FR4 TERUMO (10CM) FR 4 was exchanged in the Fem Art (right). This was necessary in or shea to 12:56:34 accomodate a larger catheter. A JL 4.0 INFINITI CATHETER FR 4 was advanced over a wire. OMNIPAQUE, 350 MG, 150ML 150ML was us ed for 12:58:02 injections. 13:00:07 HR=58 bpm, JOZO=186/89 mmhg, SpO2=96.0 %, Resp=37 B/min, Pain=0, Dennise=10, Velazquez=2 Recorded Pressure: Ao, HR=59, Condition=Condition 1 13:00:33 (Aorta) Ao 140/84/108 13:01:06 Catheter was removed A JL 5.0 INFINITI CATHETER FR 4 was advanced over a wire. OMNIPAQUE, 350 MG, 150ML 150ML was us ed for 13:01:31 injections. 13:04:32 1 mg VERSED given in lab by Odette Warren, JANNY in Left Antecubital via Peripheral IV. 13:04:49 The LCA was injected and visualized at various angles. OMNIPAQUE, 350 MG, 150ML 150ML used . 13:05:06 HR=55 bpm, DQDM=919/91 mmhg, SpO2=98.0 %, Resp=18 B/min, Pain=0, Dennise=10, Velazquez=2 13:05:41 25 mcg FENTANYL given in lab by Odette Warren, JANNY in Left Antecubital via Peripheral IV. 13:05:53 Catheter was removed A 3DRC INFINITI CATHETER FR 4 was advanced over a wire. OMNIPAQUE, 350 MG, 150ML 150ML was use d for 13:05:58 injections. 13:07:41 The RCA was injected and visualized at various angles. OMNIPAQUE, 350 MG, 150ML 150ML use d. After removing the current catheter a PIGTAIL ANG. INFINITI CATHETER FR 4 was advanced over a WIRE, 3MMJ .035 13:08:44 180CM 180CM. 13:10:05 HR=57 bpm, VGJT=937/89 mmhg, SpO2=90.0 %, Resp=53 B/min, Pain=0, Dennise=10, Velazquez=2 Recorded Pressure: LV, HR=60, Condition=Condition 1 13:11:17 (Left Ventricle) LV 138/6/12 13:12:03 The LV was injected at 8 cc/sec for a total of 32. OMNIPAQUE, 350 MG, 150ML 150ML used. Recorded Pressure: LV, Ao, HR=62, Condition=Condition 1 13:12:52 (Left Ventricle) LV 130/6/12, (Aorta) Ao 135/75/100 13:13:09 Catheter was removed 13:13:11 Case End 13:13:29 Catheter(s) removed without difficulty 13:13:47 No case complications noted. 13:13:51 Bedside Report will be given. 13:13:55 A Left Heart Cath was performed. 13:15:04 HR=58 bpm, ZKYT=756/95 mmhg, SpO2=98.0 %, Resp=11 B/min, Pain=0, Dennise=10, Velazquez=2 13:16:12 Sheath removed; pressure applied to access site. 13:20:07 HR=52 bpm, YLWU=913/91 mmhg, SpO2=97.0 %, Resp=7 B/min, Pain=0, Dennise=10, Velazquez=2 13:25:06 HR=56 bpm, SZBG=943/95 mmhg, SpO2=97.0 %, Resp=15 B/min, Pain=0, Dennise=10, Velazquez=2 13:30:05 HR=50 bpm, RHMN=432/90 mmhg, SpO2=98.0 %, Resp=16 B/min, Pain=0, Dennise=10, Velazquez=2 13:32:58 Sterile dressing applied to site 13:34:25 Vitals capture stopped. 13:36:12 [facility] End Study - Contrast Media Used In Study Contrast Total Opened (mL) Total Used (mL) Total Wasted (mL) Omnipaque 55 55 0 End Study - Maximum Contrast Load Max Contrast Load (mL) 520.0 End Study - Radiation Exposure Fluoro Time (minutes) 4.6 End Study - Sheaths Sheaths Pulled By Sheath Hold Time (min) Lynne Estrada End Study - Patient Disposition Complications Transferred To Interventional Outcome No [employer] Holding No attempt made
--- NOTE | 2017-11-13 13:49 | MA ---
cc: Corinna Thibodeaux MDAida DATE: 11/13/2017 CONSENT: Full informed consent was obtained prior to procedure. Risks of , bleeding, myocardial infarction, perforation, aspiration, foreseen or unforeseen complications reviewed. The patient appeared to fully understand the risks. PROCEDURES PERFORMED: 1. LV and coronaries. 2. Sedation. PROCEDURE IN DETAILS; The right femoral artery was entered using a micropuncture technique. Prior to this, lidocaine was given as lidocaine anesthesia and sedation was given with Versed and fentanyl. A 4-Czech sheath was placed in the right femoral artery. Following this, right and left coronary catheters were used left and right coronaries, pigtail catheter for the ventricle, carotid arteries. At the end of the catheterization procedure, all catheters and sheaths were removed. Manual pressure was applied until hemostasis was achieved and patient was returned to the room in stable condition. FINDINGS: 1. HEMODYNAMICS: The aortic pressure was 130/75, mean of 100. The left ventricular pressure was 130 with a left ventricle end diastolic pressure of 12. No evidence of significant gradient on pullback across LV outflow tract and aortic valve. 2. LEFT VENTRICULOGRAM: The overall left ventricular ejection fraction is 60%. There is no evidence of significant mitral regurgitation or mural thrombus. 3. CORONARIES: The left main is large and free of significant disease. The left anterior descending artery has evidence of a previously placed stent, which is widely patent. The circumflex artery is large. A large first obtuse marginal branch, which bifurcates into 2 sub-branches. The right coronary artery is a large vessel with a large posterior descending. CONCLUSION: Normal coronaries, widely patent stent to the left anterior descending. PLAN: Medical management. MD RICHARD Mays/PETRA , 01:26 PM , 01:48 PM EMELIA
--- NOTE | 2017-11-14 15:39 | EKG ---
Date Performed: 11/13/2017 Time Performed: 11:20:28 PTAGE: 62 years EKG: Consider paced rhythm Abnormal ECG PREVIOUS TRACING : 10/05/2017 14.35 DOCTOR: Godwin Linda Interpretating Date/Time 11/14/2017 15:29:53
== END 2017-11-13 18:15 | disposition home or self-care (01) ==
LOC: HDOC 10:16 → HDIC 10:17 → HDOC 18:15
PROVIDERS: ATTEND Internal Medicine Cardiovascular Disease
DX: R07.9 Chest pain, unspecified (principal); I25.10 Atherosclerotic heart disease of native coronary artery without angina pectoris; I10 Essential (primary) hypertension; K21.9 Gastro-esophageal reflux disease without esophagitis; R06.00 Dyspnea, unspecified; R53.83 Other fatigue; K22.70 Barrett's esophagus without dysplasia; R94.39 Abnormal result of other cardiovascular function study; Z82.49 Family history of ischemic heart disease and other diseases of the circulatory system; Z95.5 Presence of coronary angioplasty implant and graft; Z01.818 Encounter for other preprocedural examination
CPT/HCPCS: 80048; 85025; 85610; 93005; 93458; 99152; 99153; C1769; C1893; J1644; J2250; J3010; J7030; Q9967